=== PATIENT | male | born 1995 | race Caucasian/White ===

== ENCOUNTER 2019-07-06 07:11 | Emergency (ER) | payer BC ==
[~2019-07-06] VITALS: Ht 177.8 cm; Wt 79.4 kg
[2019-07-06 07:20] VITALS: BP_SYST 157
--- NOTE | 2019-07-06 07:27 | NUR ---
PATIENT RETURNED TO WAITING ROOM; STABLE; UNCHANGED
--- NOTE | 2019-07-06 08:09 | NUR ---
PATIENT NOT FOUND IN ER NOR SURROUNDING AREA; ELOPED/LWBS
== END 2019-07-06 08:09 | disposition left against medical advice (07) ==
LOC: SED 07:11
DX: R10.13 Epigastric pain (principal); R11.2 Nausea with vomiting, unspecified; Z53.21 Procedure and treatment not carried out due to patient leaving prior to being seen by health care provider